=== PATIENT | female | born 1960 | race Caucasian/White ===

== ENCOUNTER 2022-06-06 14:15 | Emergency (ER) | payer SELFPAY ==
[~2022-06-06] VITALS: Ht 160 cm; Wt 63.5 kg
[2022-06-06] MEDS ORDERED: ONDANSETRON HCL INJ 2MG/ML 2ML 2 MG/ML VIAL IV STA (14:38)
[2022-06-06] MEDS ORDERED: SODIUM CHLORIDE 0.9% 1000ML 1,000 ML IV ONE (14:45)
[2022-06-06 14:56] LABS: BASOPHILS # (AUTO) 0.1 (0.0-0.1); BASOPHILS % 0.5 % (0.0-1.0); EOSINOPHILS % 0.2 % (0.0-6.0); HEMATOCRIT 41.4 % (34.2-44.1); HEMOGLOBIN 13.9 g/dL (12.0-16.0); LYMPHOCYTES % 15.6 % (18.0-39.1); MEAN CORPUSCULAR HEMOGLOBIN 28.4 pg (28-32); MEAN CORPUSCULAR HGB CONC 33.6 g/dL (31-35); MEAN CORPUSCULAR VOLUME 84.7 fL (81-99); MONOCYTES # (AUTO) 0.5 (0.2-0.8); NEUTROPHILS % 79.2 % (38.7-80.0); PLATELET COUNT 521 x10e3/uL (140-360); RED BLOOD COUNT 4.89 x10e6/uL (3.6-5.1)
[2022-06-06 15:18] LABS: ALBUMIN 3.8 g/dL (3.5-5.0); ALBUMIN/GLOBULIN RATIO 0.9 (0.8-2.0); ANION GAP 13.9 mmol/L (8-16); CALCIUM 9.2 mg/dL (8.4-10.2); CREATININE, SERUM 0.85 mg/dL (0.57-1.11); POTASSIUM 3.9 mmol/L (3.5-5.1)
== END 2022-06-06 16:27 | disposition home or self-care (01) ==
LOC: ER 15:07
DX: R11.2 Nausea with vomiting, unspecified (principal); U07.1 COVID-19
CPT/HCPCS: 36415; 80053; 83735; 85025; 99284; J2405; J7030